=== PATIENT | male | born 1945 | race Caucasian/White ===

== ENCOUNTER 2017-05-24 12:33 | Outpatient (CLI) | payer OTHER | END 2017-05-24 13:52 | disposition home or self-care (01) | LOC: RAD 12:33 | DX: M48.062 Spinal stenosis, lumbar region with neurogenic claudication (principal); M48.02 Spinal stenosis, cervical region ==

== ENCOUNTER 2017-06-27 09:34 | Outpatient (CLI) | payer OTHER | END 2017-06-27 09:36 | disposition home or self-care (01) | LOC: RAD 09:34 | DX: M54.5 Low back pain (principal); M54.16 Radiculopathy, lumbar region ==

== ENCOUNTER 2017-06-29 10:45 | Outpatient (CLI) | payer OTHER | END 2017-06-29 11:00 | disposition home or self-care (01) | LOC: NUCLEAR 10:45 | DX: M54.5 Low back pain (principal) | CPT/HCPCS: 78306; A9503 ==